=== PATIENT | male | born 1980 | race Caucasian/White ===

== ENCOUNTER 2018-07-02 10:00 | Emergency (ER) | payer BC, SELFPAY ==
[~2018-07-02] VITALS: Ht 170.2 cm; Wt 63.5 kg
[~2018-07-02 10:00] MED LIST: MUPI22OI2 TP; SULF1TAB24 PO
[2018-07-02 10:12] VITALS: BP 118/69
[2018-07-02] MEDS ORDERED: LIDOCAINE (700MG/PATCH) PATCH. TD ONE (10:30)
[2018-07-02] MEDS ORDERED: METH-38 PO (10:33)
--- NOTE | 2018-07-02 10:34 | PHYS DOC ---
Past Medical History Past Medical History: No Pertinent History Past Surgical History: Other Additional Past Surgical Histo: LEFT ELNOW FRACTURE Alcohol Use: Rarely Drug Use: None Adult General Chief Complaint Chief Complaint: BACK PAIN OR INJURY HPI HPI Patient is a 37 y/o male presents to ER via POV for c/o left upper back pain which radiates into the left side of his neck with any range of motion of back or left upper extremity. Patient denies any injury. Pt denies headache, dizziness, swelling, or skin discoloration. Pt reports he has been taking Ibuprofen and did an Epsom salt soak yest. with improved sxs. Pt reports pain increases with palp. of lt upper back. Pt denies CP/SOA/cough. Patient denies any recent illness. Pt reports he works at an [employer] house and lifts heavy parts. He denies pain onset while at work. He reports after waking from sleeping on his couch he had lt upper back pain. Review of Systems Review of Systems Constitutional: Denies fever or chills [] Eyes: Denies change in visual acuity, redness, or eye pain [] HENT: Denies nasal congestion or sore throat [] Respiratory: Denies cough or shortness of breath [] Cardiovascular: Denies CP GI: Denies abdominal pain, nausea, vomiting : Denies dysuria or hematuria [] Musculoskeletal: Denies joint pain. Reports lt upper back pain into lt side neck Integument: Denies rash or skin lesions. Denies swelling Neurologic: Denies headache, focal weakness or sensory changes [] All other systems were reviewed and found to be within normal limits, except as documented in this note. Current Medications Current Medications Current Medications Medications (Trade) Dose Ordered Sig/Jillian Start Time Stop Time Status Last Admin Dose Admin Lidocaine (Lidoderm) 1 patch 1X ONCE 07/02/18 10:30 07/02/18 10:31 DC Allergies Allergies Allergies Coded Allergies Type Severity Reaction Last Updated Verified No Known Drug Allergies 10/21/15 No Physical Exam Physical Exam Constitutional: Well developed, well nourished, no acute distress, non-toxic appearance. [] HENT: Normocephalic, atraumatic, oropharynx moist, nose normal. [] Eyes: Pupils equal, no nystagmus, conjunctiva normal, no discharge. [] Neck: Normal range of motion, no tenderness mid cspine or palp. deformity/crepitus, tender lt lateral neck into lt upper back, supple, no stridor. [] Cardiovascular: Heart rate regular rhythm, no murmur [] Lungs & Thorax: Bilateral breath sounds clear to auscultation- resp. equal/nonlabored Skin: Warm, dry, no erythema, no rash. [] Back: No tenderness mid spinal tenderness- no palp. deformity- full ROM, tender lt upper back- no swelling, no tenderness across scapula area- pain is above; no CVA tenderness. [] Extremities: No tenderness, no cyanosis, no clubbing, ROM intact, no edema. 2+ bilat. radial. Neurologic: Alert and oriented X 3, normal motor function, normal sensory function, no focal deficits noted. [] Psychologic: Affect normal, judgement normal, mood normal. [] Current Patient Data Vital Signs Vital Signs Date Time Temp Pulse Resp B/P (MAP) Pulse Ox O2 Delivery O2 Flow Rate FiO2 07/02/18 10:12 97.9 81 16 118/69 (85) 98 Room Air 97.9 EKG EKG [] Radiology/Procedures Radiology/Procedures [] Course & Med Decision Making Course & Med Decision Making Pt was evaluated in the ER for lt upper back/muscle pain. Patient denied any known injury. Lidoderm patch was applied to area of focal tenderness left upper back. Patient had no midline C-spine or spinal tenderness or palpable deformity on exam. Patient was PMS intact in bilateral upper extremities with full range of motion of extremities and neck. Discussed plans for home discharge with prescriptions for Robaxin and Lidoderm patches. Patient advised on use of Tyle nol and/or ibuprofen, ice and or heat compress, and over the inner sports cream is not using Lidoderm patches. Patient was in no visible distress during exam and discussion. Discussed if symptoms persist patient to follow-up with his primary care physician for reevaluation and further care. [] Dragon Disclaimer Dragon Disclaimer This electronic medical record was generated, in whole or in part, using a voice recognition dictation system. Departure Departure Impression: Primary Impression: Muscle strain of left upper back Additional Impression: Back pain Disposition: 01 HOME, SELF-CARE Condition: STABLE Referrals: NO PCP (PCP) Patient Instructions: Back Pain, Adult, Muscle Strain Additional Instructions: Tylenol and/or ibuprofen as needed for pain as directed on container. Epsom salt soaks as directed on container. Ice/heat compress to affected area every 3-4 hours for 20-30 minutes at a time. Over the counter sports cream if not using Lidoderm patches as directed on container. If symptoms persist follow-up with your primary doctor for re-evaluation and further care. Scripts Methocarbamol (ROBAXIN-750) 750 Mg Tablet 1 TAB PO BID PRN for PAIN, #10 TAB 0 Refills Prov: KRISTY CAMERON APRN 07/02/18 Problem Qualifiers KRISTY CAMERON APRN July 02, 2018 10:34
== END 2018-07-02 10:58 | disposition home or self-care (01) ==
LOC: ER 10:00
DX: S29.012A Strain of muscle and tendon of back wall of thorax, initial encounter (principal); M54.2 Cervicalgia; X58.XXXA Exposure to other specified factors, initial encounter; Y93.89 Activity, other specified; Y92.89 Other specified places as the place of occurrence of the external cause; Y99.8 Other external cause status
CPT/HCPCS: 99281; 99283